=== PATIENT | male | born 1980 | race Caucasian/White ===

== ENCOUNTER 2018-04-03 19:42 | Emergency (ER) | payer MEDICARE, SELFPAY ==
[2018-04-03 20:43] VITALS: BP 119/78; PULSE 84; RESP 16; O2SAT 100
--- NOTE | 2018-04-03 20:45 | ED.RN ---
PT DENIES BEING SUICIDAL
[2018-04-03 20:54] VITALS: BP 125/70; PULSE 80; RESP 14; O2SAT 98; BMI 31.6
[2018-04-03 20:55] LABS: Absolute Neutrophil Count 4.7 X10^3/uL (2.0-7.7); Basophil# 0.02 X10^3/uL; Basophil% 0.3 % (0-1); Eosinophil# 0.08 X10^3/uL; Eosinophils% 1.2 % (0-5); Hematocrit 45.5 % (40-54); Hemoglobin 15.9 g/dl (13.0-16.5); Lymphocyte % 23.1 % (19-41); Mean Corp Hgb Conc 34.9 g/gl (32-36); Mean Corpuscular Hgb 31.1 pg (27.0-32.0); Mean Corpuscular Volume 88.9 fL (80-94); Monocyte# 0.57 X10^3/uL; Monocyte% 8.2 % (0-10); Neutrophil # 4.66 X10^3/uL (2.7-7.7); Neutrophil % 67.1 % (47-70); POSITIVE COUNT NO; POSITIVE DIFFERENTIAL NO; POSITIVE MORPHOLOGY NO; Platelet Count 212 K/mm3 (150-450); RBC Distribution Width CV 11.7 % (11.6-14.6); Red Blood Count 5.12 M/mm3 (4.6-6.2); White Blood Count 6.9 K/mm3 (4.4-11.0)
[2018-04-03 21:11] LABS: Anion Gap 9 (5-15); BUN 11 mg/dL (7-18); BUN/Creat Ratio 12.1 RATIO (10-20); Calcium,Total 9.2 mg/dL (8.5-10.1); Chloride 98 mmol/L (98-107); Creatinine, Serum 0.91 mg/dL (0.70-1.30); EST Glomerular Filtration Rate 100 mL/min (>60); Est Glom Filt Rate - Afr Amer 121 mL/min (>60); Estimated Creatinine Clearance 115.87 ml/min; Glucose 109 mg/dL (74-106); Potassium 3.8 mmol/L (3.5-5.1); Sodium Level 134 mmol/L (136-145)
[2018-04-03 21:29] LABS: Alcohol, Blood (Medical)-Serum < 3.0 mg/dL
[2018-04-03 21:51] LABS: Amphetamine Urine VISTA NEGATIVE (<1000 ng/mL); Barbiturate Urine VISTA NEGATIVE (< 200 ng/mL); Benzodiazepine Urine VISTA NEGATIVE (< 200 ng/mL); Cocaine Urine VISTA NEGATIVE (< 300 ng/mL); Ecstacy Urine VISTA NEGATIVE (< 500 ng/mL); Methadone Urine VISTA NEGATIVE (< 300 ng/mL); PCP Urine VISTA NEGATIVE (< 25 ng/mL); THC Urine VISTA NEGATIVE (< 50 ng/mL); Vista UDS pH Range 6
[2018-04-03 22:09] VITALS: BP 128/76; PULSE 79; RESP 16; O2SAT 98
--- NOTE | 2018-04-03 22:48 | ED.VISSUMM ---
- ER Visit Summary Date of Service: 04/03/18 Chief Complaint: Confusion History of Present Illness: The patient is a 37 M who was brought in for confusion and abnormal behavior. History is limited as the patient has a bizarre affect. Family had reported that he seemed confused and that this is normally how he looks before he has an episode of psychosis. He does have a prior history of psychosis. He admits that he has a prior history of hallucinations. He gives vague or unclear answers when asked if he is currently having hallucinations. He does however deny recent illness such as fever pain vomiting or diarrhea. Physical Examination: Afebrile vitals are normal Moist mucous membranes Heart regular rate and rhythm Lungs are clear Abdomen soft Alert Bizarre affect Test Results: CBC BMP unremarkable. Alcohol negative. Urine drug screen negative. Emergency Department Course and Treatment: We will have crisis evaluate the patient. Final disposition pending their evaluation. Treatment Plan: [] Disposition: Pending crisis evaluation Impression: Psychosis This note was generated with [employer]ment[employer] dictation software. It may contain incorrect words, spelling, and punctuation that were not noted in review of the chart prior to signing ED Disposition - Plan for ED Patient: Chief Complaint: Confusion Referrals: Care Physician,No Primary [Primary Care Provider] -
[2018-04-03 23:38] VITALS: BP 120/83; PULSE 84; RESP 22; O2SAT 100
[2018-04-04] VITALS (9 sets, daily range): BP systolic 102–109; BP diastolic 54–59; PULSE 74; RESP 14–22; O2SAT 98–100
--- NOTE | 2018-04-04 02:24 | EKG12_ITS ---
Test Reason : Blood Pressure : / mmHG Vent. Rate : 076 BPM Atrial Rate : 076 BPM P-R Int : 158 ms QRS Dur : 086 ms QT Int : 390 ms P-R-T Axes : 047 041 031 degrees QTc Int : 438 ms Normal sinus rhythm Normal ECG Confirmed by RITA RAMIREZ, SRINIVASAN ([id number]), marketing editor ANTHONY DODSON ([id number]) on 04/06/2018 9:07:04 AM Referred By: ANGELA Confirmed By:SRINIVASAN SALINAS MD
--- NOTE | 2018-04-04 02:25 | RAD_ITS ---
STUDY: X-RAY CHEST REASON FOR EXAM: Male, 37 years old. Medical clearance. TECHNIQUE: AP portable chest. COMPARISON: None. FINDINGS: The lungs are clear and expanded. There is no demonstrated pleural abnormality. Normal size heart. Normal mediastinum and yeimy. Normal visualized pulmonary arteries. Normal visualized aortic arch and descending thoracic aorta. Normal visualized thoracic spine. Normal visualized ribs, clavicles, and shoulders. There is no demonstrated abnormality of the visualized soft tissue structures of the upper abdomen. RAD/Chest 1 View (Portable) IMPRESSION: Normal x-ray examination of the chest. Electronically Signed: Stephen Gray MD at 2:40 EDT , Service support ,
[2018-04-04 02:58] LABS: Bacteria 0 SEEN /hpf (None Seen); Mucous, Urine 0 SEEN /hpf (<or=2+); Red Blood Cells-Urine 0 SEEN /hpf (0-5); White Blood Cells 0 SEEN /hpf (0-5)
[2018-04-04 02:59] LABS: Color, Urine Straw (Yellow); Glucose, Dipstick Normal (Normal); Ketone-Dipstick 5 mg/dl (Negative); Leukocyte Esterase-Dipstick Negative /ul (Negative); Nitrite-Dipstick Negative (Negative); Occult Blood-Urine Negative /ul (Negative); Protein-Dipstick Negative (Negative); Specific Gravity, Urine 1.005 (1.002-1.030); Urine Bilirubin Dipstick Negative (Negative); Urine Clarity Clear (Clear); Urine Urobilinogen Normal (Normal)
[2018-04-04 03:05] LABS: Squamous Epithelial Cells - UA 0-5 SEEN /hpf (0-5)
--- NOTE | 2018-04-04 09:25 | ED.RN ---
COUNSELING CALLED AND IS WAITING TO HEAR FROM [facility].
--- NOTE | 2018-04-04 13:53 | ED.RN ---
PT'S MOM CALLED AND INFORMED THIS NURSE THAT PT IS DUE FOR INVEGA INJECTION TOMORROW AND IS UNSURE OF THE DOSE. DR. KUMAR INFORMED OF SAME.
== END 2018-04-04 14:55 ==
PROVIDERS: Emergency Medicine; Emergency Provider Emergency Medicine
DX: F29 Unspecified psychosis not due to a substance or known physiological condition (principal); Z79.899 Other long term (current) drug therapy; Z72.0 Tobacco use
CPT/HCPCS: 36415; 71045; 80048; 80307; 80320; 81001; 85025; 93005; 99283; A4216; G0480

== ENCOUNTER 2018-08-10 11:32 | Emergency (ER) | payer MEDICARE, SELFPAY ==
[2018-08-10] VITALS (7 sets, daily range): BP systolic 124–145; BP diastolic 75–91; PULSE 80–94; RESP 14–16; TEMP 36.6; O2SAT 98–100; BMI 29.0
--- NOTE | 2018-08-10 11:52 | ED.RN ---
Spoke to mother about pt. Mother reports that pt is not having linear thoughts. States that typically when he begins to behave that way it is not long before he loses all control and does something bad. Asked mother what that meant, she states that he has been in trouble with the law and has been charged with menacing. Dr. Soliz made aware. Pt is here voluntarily. States that typically as his cycles progress he gets worse and would not be compliant. Mother denies pt saying anything of suicidal or homicidal ideation. Pt also denies suicidal or homicidal ideation. Pt is pleasant and compliant with care.
[2018-08-10 12:09] LABS: Absolute Lymphocyte Count 2.05 X10^3/ul (0.83-4.51); Absolute Neutrophil Count 2.8 X10^3/uL (2.0-7.7); Basophil# 0.03 X10^3/uL; Basophil% 0.6 % (0-1); Eosinophil# 0.06 X10^3/uL; Eosinophils% 1.1 % (0-5); Hematocrit 45.3 % (40-54); Hemoglobin 16.1 g/dl (13.0-16.5); Lymphocyte # 2.05 X10^3/ul (4.0); Mean Corp Hgb Conc 35.5 g/gl (32-36); Mean Corpuscular Hgb 30.9 pg (27.0-32.0); Mean Corpuscular Volume 86.9 fL (80-94); Monocyte# 0.44 X10^3/uL; Monocyte% 8.1 % (0-10); Neutrophil # 2.81 X10^3/uL (2.7-7.7); Platelet Count 221 K/mm3 (150-450); RBC Distribution Width CV 11.9 % (11.6-14.6); RBC Distribution Width SD 37.8 fl (35.1-43.9); Red Blood Count 5.21 M/mm3 (4.6-6.2); White Blood Count 5.4 K/mm3 (4.4-11.0)
[2018-08-10 12:15] LABS: POSITIVE COUNT NO; POSITIVE DIFFERENTIAL NO; POSITIVE MORPHOLOGY NO
[2018-08-10 12:20] LABS: Anion Gap 8 (5-15); BUN 11 mg/dL (7-18); BUN/Creat Ratio 12.6 RATIO (10-20); Calcium,Total 9.2 mg/dL (8.5-10.1); Chloride 102 mmol/L (98-107); Creatinine, Serum 0.87 mg/dL (0.70-1.30); EST Glomerular Filtration Rate 104 mL/min (>60); Est Glom Filt Rate - Afr Amer 126 mL/min (>60); Estimated Creatinine Clearance 123.82 ml/min; Glucose 107 mg/dL (74-106); Potassium 3.4 mmol/L (3.5-5.1); Sodium Level 137 mmol/L (136-145)
[2018-08-10 12:36] LABS: Amphetamine Urine VISTA NEGATIVE (<1000 ng/mL); Barbiturate Urine VISTA NEGATIVE (< 200 ng/mL); Benzodiazepine Urine VISTA NEGATIVE (< 200 ng/mL); Cocaine Urine VISTA NEGATIVE (< 300 ng/mL); Ecstacy Urine VISTA NEGATIVE (< 500 ng/mL); Methadone Urine VISTA NEGATIVE (< 300 ng/mL); PCP Urine VISTA NEGATIVE (< 25 ng/mL); THC Urine VISTA NEGATIVE (< 50 ng/mL); Vista UDS pH Range 6
--- NOTE | 2018-08-10 13:17 | ED.RN ---
Crisis notified pt ready for eval. Crisis Bang stated he would inform Deann.
--- NOTE | 2018-08-10 14:02 | NURSING ---
MICHAEL, CRISIS, HERE
--- NOTE | 2018-08-10 14:42 | ED.VISSUMM ---
- ER Visit Summary Date of Service: 08/10/18 Chief Complaint: [Psychosis] History of Present Illness: The patient is a 38 M [presents to the emergency department with his mother who brought him in because he has had non-linear thinking. Patient with history of schizoaffective disorder. Mother states that when he gets this way he tends to continue to spiral out of control and then gets in trouble with the law. Patient is really a very poor historian and states that he talks to himself a lot and says things on Facebook that other people are not sure how to talk to him. Patient states that sometimes he feels like he is in a fantasy. He denies any suicidal or homicidal ideation.] Physical Examination: [HEENT-PERRLA, EOMI. Cranial nerves II through XII grossly intact. TMs clear. Mucous membranes moist. No adenopathy. Cardiovascular-regular rate and rhythm without murmur or ectopy Lungs-clear to auscultation, chest wall stable without crepitus or subcu emphysema Abdomen-normoactive bowel sounds, soft, nontender, no rebound or rigidity, no peritoneal signs. Extremities-intact ?4, normal range of motion, normal pulses, atraumatic] Test Results: [CBC with differential was normal. Chemistries were normal. Toxicology screen was negative. Alcohol was negative.] Emergency Department Course and Treatment: [Patient will be evaluated by crisis] Treatment Plan: [Pending evaluation by crisis] Disposition: [Pending] Impression: [Psychosis] This note was generated with [employer] dictation software. It may contain incorrect words, spelling, and punctuation that were not noted in review of the chart prior to signing ED Disposition - Plan for ED Patient: Chief Complaint: Mental Health Referrals: Suellen Bedolla MD [Primary Care Provider] -
--- NOTE | 2018-08-10 17:12 | CM.ED ---
Social Work Note Liane from crisis consulted this movie writer to evaluate the pt as well for a second opinion. Face to face with the pt and introduced self and role at [facility]. The pt reports to live on his own with his dog. He does receive disability and is presently unemployed. 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 Pt is well kempt and reports ability to care for self. He has access to transportation and is [facility] with [facility]. He sees Dr. Jacobs and has an appointment with her tomorrow. He also sees, Ramon, the counselor at the [facility] and has a block and case maker Nancy. Pt denies SI, HI or hallucinations/delusions. He does report a past criminal history, but states that it has been years. Pt exhibits some paranoia as evidenced by discussion of the government conspiring, but at this time do not feel the pt is a threat to himself or others. He also expresses concern with CHF, although it does not appear he has ever been given a formal diagnosis. Offer to link the pt with a PCP and he states that he would like to discuss this with Dr. Berg first. Pt made aware that SW is available if needs arise. Discussed with Liane and do not feel that the pt is presently a threat to himself or others. Due to him having an appointment tomorrow with his psychiatrist believe the pt is safe to discharge home. HAKEEM Bennett, GONZALO
--- NOTE | 2018-08-10 19:03 | ED.VISSUMM ---
- ER Visit Summary Date of Service: 08/10/18 Emergency Department Course and Treatment: Crisis was in to evaluate the patient. He has an appointment with his psychiatrist tomorrow. Patient has no suicidal or homicidal ideations. Patient will be discharged and instructed to follow-up with his psychiatrist tomorrow for further evaluation. Disposition: Discharged home Impression: Schizoaffective disorder This note was generated with Supponor dictation software. It may contain incorrect words, spelling, and punctuation that were not noted in review of the chart prior to signing ED Disposition - Plan for ED Patient: Disposition: Home or Assisted Living Instructions: ED Schizo Affective Disorder Referrals: Suellen Bedolla MD [Primary Care Provider] -
--- NOTE | 2018-08-10 19:06 | ED.DCSUM_ITS ---
- ER Visit Summary Date of Service: 08/10/18 Emergency Department Course and Treatment: Crisis was in to evaluate the patient. He has an appointment with his psychiatrist tomorrow. Patient has no suicidal or homicidal ideations. Patient will be discharged and instructed to follow-up with his psychiatrist tomorrow for further evaluation. Disposition: Discharged home Impression: Schizoaffective disorder This note was generated with Light[employer]ared dictation software. It may contain incorrect words, spelling, and punctuation that were not noted in review of the chart prior to signing ED Disposition - Plan for ED Patient: Disposition: Home or Assisted Living Instructions: ED Schizo Affective Disorder Referrals: Suellen Bedolla MD [Primary Care Provider] -
== END 2018-08-10 19:22 | disposition home or self-care (01) ==
PROVIDERS: Emergency Provider Emergency Medicine; Family Provider Psychiatry & Neurology Psychiatry; PCP Psychiatry & Neurology Psychiatry
DX: F25.9 Schizoaffective disorder, unspecified (principal); F06.8 Other specified mental disorders due to known physiological condition; Z79.899 Other long term (current) drug therapy; Z72.0 Tobacco use
CPT/HCPCS: 80048; 80307; 80320; 85025; 99284; G0480

== ENCOUNTER 2020-02-02 20:18 | Emergency (ER) | payer MEDICARE, SELFPAY ==
[2018-08-10 11:33] VITALS: BMI 29.0
[2020-02-02 20:20] VITALS: TEMP 37; BMI 28.4
--- NOTE | 2020-02-02 20:31 | CT_ITS ---
HISTORY: PSYCHOSIS,PT MAKING THREATS,FLIGHT OF IDEAS PINK SLIPPED BY POLICE HX:SCHIZOPHRENIA TECHNIQUE: Multiple axial images were obtained of the brain without intravenous contrast. A radiation dose optimization technique was used for this scan. COMPARISON: None FINDINGS: Normal ventricles and normal rachel-white matter differentiation. No intracranial mass, hemorrhage, or acute parenchymal abnormality. Posterior fossa structures are unremarkable. No suspicious extra-axial fluid collection. As visualized, the mastoids and paranasal sinuses are clear. CT/Brain/Head without Contrast IMPRESSION: Normal CT brain without contrast. Individualized dose optimization techniques were used for this CT. at 2336 Reported and signed by: Ash Romero MD Electronically Signed: Ash Romero, at 23:35 EDT Tel , Service support ,
--- NOTE | 2020-02-02 20:32 | ED.VIS.PSYCH ---
History of Present Illness Chief Complaint: Mental Health Informant: Patient, - - police Context: unk details Timing: Continuous Current Severity: Severe Maximum Severity: Severe Associated Symptoms: Grandiosity, Agitated, Angry, Paranoia Narrative: Patient is brought by police under pink slip that they wrote a, he was talking to them about night terrors and not being able to sleep and others that are out to get him, but for about the past month he has been getting worse, paranoid and grandiose delusions, sending emails to threaten others, threatening to burn down the house and cars of a neighbor because there is no [facility] in this neighborhood, he continues to talk since loosely about federal agencies and the fact that because he is paranoid apparently, he refuses to cooperate or talk to any of us without a federal officer present. He is talked about cutting the power at the [employer], and talking about people that are stupid as shit? Nazis? You all deserved to be in factory bombed. Apparently the patient also had a harassment charge remotely because he sent letters and emails to smokers with threats. Patient was evaluated by the counseling center and pink slipped prior to being sent here to the emergency department. According to them he has history of schizophrenia and has not been compliant with getting his Invega injections since June 2019. They are supposed to be monthly. - Past Medical History (1) Schizophrenia Status: Chronic Past Medical History - Allergies and Home Meds Allergies/Adverse Reactions: Allergies No Known Allergies Allergy (Verified 08/10/18 11:36) Primary Care Physician: Suellen Bedolla MD [Primary Care Provider] - Smoking Status: Current every day smoker Review of Systems ROS: Unable to Obtain Physical Exam Vital Signs/Narrative: Vital Signs Temp 02/02/20 20:20 98.6 F Inital Vital Signs reviewed: Yes General: Well nourished, Well developed, - - Keenly alert, no acute distress. Agitated and angry. Head: Normocephalic, Atraumatic Eyes: Perrl, EOMI - Grossly ENT: Moist mucous membranes, No rhinorrhea Neck: Supple, - - Full range of motion without apparent difficulty Respiratory: No distress Extremities: No Edema Skin: Normal color, No rash, No Trauma Neurological: Alert, Oriented x3, Cranial nerves II-XII grossly intact, Normal Strength, Normal Sensation, Normal Gait Psych: Normal Appearance, Pressured Speech, Flight of Ideas, Incoherent thoughts, Delusions - Of grandiosity, Paranoid Ideation - Concerned about federal agencies, Limited Insight, Limited Judgement Diagnostic/Tx/Re-eval Restraints applied: Yes Reason for restraints: uncooperative, agitated, threatening Patient is in need of emergent psychiatric evaluation and will require transfer to a psychiatric facility, as this is all likely primary psychiatric. He is pink slipped. Work-up is being obtained in order to medically clear him including a CT of the head given his apparent psychosis. There is a long list of things according to his mother and according to crisis, that was brought attached with a pink slip by police, that suggests he is either manic or schizophrenic and/or antisocial personality disorder. ED Disposition - Plan for ED Patient: Disposition: Psychiatric Hospital or Unit Diagnosis: Acute psychosis, Schizophrenia Referrals: Suellen Bedolla MD [Primary Care Provider] -
[2020-02-02] MEDS: Ziprasidone IM 20 MG/ML VIAL IM (20:46)
[2020-02-02 20:54] VITALS: BP 161/92; PULSE 115; RESP 16; O2SAT 100
[2020-02-02 21:42] LABS: Absolute Lymphocyte Count 1.17 X10^3/uL (0.83-4.51); Absolute Neutrophil Count 3.2 X10^3/uL (2.0-7.7); Basophil# 0.03 X10^3/uL; Basophil% 0.6 % (0-1); Eosinophil# 0.08 X10^3/uL; Eosinophils% 1.6 % (0-5); Hematocrit 42.8 % (40-54); Hemoglobin 14.8 g/dL (13.0-16.5); Lymphocyte # 1.17 X10^3/ul (4.0); Lymphocyte % 23.9 % (19-41); Mean Corp Hgb Conc 34.6 g/dL (32-36); Mean Corpuscular Hgb 30.6 pg (27.0-32.0); Mean Corpuscular Volume 88.4 fL (80-94); Monocyte# 0.44 X10^3/uL; NRBC Flagged by Analyzer 0 % (0-5); Neutrophil # 3.16 X10^3/uL (2.7-7.7); Neutrophil % 64.7 % (47-70); Platelet Count 231 K/mm3 (150-450); RBC Distribution Width CV 11.7 % (11.6-14.6); RBC Distribution Width SD 37.2 fl (35.1-43.9); Red Blood Count 4.84 M/mm3 (4.6-6.2); White Blood Count 4.9 K/mm3 (4.4-11.0)
[2020-02-02 21:55] LABS: Alcohol, Blood (Medical)-Serum < 3.0 mg/dL
[2020-02-02 21:58] VITALS: BP 118/82; PULSE 82; RESP 17; O2SAT 95
[2020-02-02 22:05] LABS: ALB/GLOB Ratio 1.3 RATIO (0.9-2.4); AST(SGOT) 20 U/L (15-37); Alanine Aminotransfer ALT/SGPT 50 U/L (16-61); Alkaline Phosphatase 39 U/L (45-117); Anion Gap 8 (5-15); BUN 8 mg/dL (7-18); BUN/Creat Ratio 9.2 RATIO (10-20); Calcium,Total 8.7 mg/dL (8.5-10.1); Chloride 108 mmol/L (98-107); Creatinine, Serum 0.87 mg/dL (0.70-1.30); EST Glomerular Filtration Rate 104 mL/min (>60); Est Glom Filt Rate - Afr Amer 126 mL/min (>60); Estimated Creatinine Clearance 118.87 ml/min; Globulin 3.1 g/dL (2.2-4.2); Glucose 110 mg/dL (74-106); Potassium 3.5 mmol/L (3.5-5.1); Protein, Total 7.1 g/dL (6.4-8.2); Sodium Level 139 mmol/L (136-145); Thyroid Stim Hormone (TSH) 1.31 uIU/mL (0.358-3.74)
[2020-02-02 23:19] VITALS: BP 147/103; PULSE 108; RESP 15; O2SAT 96
--- NOTE | 2020-02-02 23:20 | ED.RN ---
RESTRAINTS REMOVED AT THIS TIME. RN WILL CONTINUE TO MONITOR PATIENT.
[2020-02-02 23:33] LABS: Amphetamine Urine VISTA NEGATIVE (<1000 ng/mL); Barbiturate Urine VISTA NEGATIVE (< 200 ng/mL); Benzodiazepine Urine VISTA NEGATIVE (< 200 ng/mL); Cocaine Urine VISTA NEGATIVE (< 300 ng/mL); Ecstacy Urine VISTA NEGATIVE (< 500 ng/mL); Methadone Urine VISTA NEGATIVE (< 300 ng/mL); PCP Urine VISTA NEGATIVE (< 25 ng/mL); THC Urine VISTA NEGATIVE (< 50 ng/mL); Vista UDS pH Range 5
[2020-02-03] VITALS (7 sets, daily range): BP systolic 112–136; BP diastolic 74–75; PULSE 65–86; RESP 14–96; O2SAT 16–97
== END 2020-02-03 06:05 ==
PROVIDERS: Emergency Provider Emergency Medicine; PCP Psychiatry & Neurology Psychiatry
DX: F20.9 Schizophrenia, unspecified (principal); F17.200 Nicotine dependence, unspecified, uncomplicated
CPT/HCPCS: 70450; 80053; 80307; 80320; 84443; 85025; 96372; 99282; G0480; J3486